=== PATIENT | female | born 1965 | race Two or more races ===

== ENCOUNTER 2016-09-17 16:31 | Inpatient (IN) | payer MEDICAID ==
--- NOTE | 2016-09-17 16:42 | ED Physician Chart ---
Chief Complaint/HPI - Patient Information Date Seen:: 09/17/16 Time Seen:: 16:32 Chief Complaint:: Alcohol intoxication History of Present Illness:: Pt was brought in by ambulance because she was found intoxicated with alcohol in the public. Pt appears to be comfortable without subjective complaint. H & P are limited because pt is intoxicated and is not fully cooperative. Allergies:: NKA Vitals:: see Nurse Note Historian:: Patient, EMS Family MD/PCP:: Unknown LMP:: Postmenopausal Review:: Nurse's Note Reviewed Review of Systems - Review of Systems General/Constitutional: Other (Pt does not cooperate for ROS.) Past Medical History - Past Medical History Past Medical History: Other (alcoholism) Family History: Other (Pt does not cooperate to provide info on FHx.) Social History: Alcohol, Other (Pt does not cooperate to provide info on SHx.) Surgical History: other (Pt does not cooperate to provide info on Surgical Hx.) Psychiatricy History: Bipolar Medication: Reviewed Family Medical History - Family Member Mother History Unknown: Yes Physical Exam - Physical Examination General/Constitutional: Awake, Well-developed, well-nourished, Alert, No distress Other Gen/Cons comments:: Breathes comfortably, speaks clearly, but not cooperative. Head: Atraumatic Eyes: Lids, conjuctiva normal, PERRL, EOMI Skin: Nl inspection, No rash, No skin lesions, No ecchymosis, Well hydrated, No lymphadenopathy ENMT: External ears, nose nl, Nasal exam nl, Oropharynx nl, Tonsils nl Neck: Nontender, Full ROM w/o pain, No JVD, No nuchal rigidity, No mass, No stridor Cardio Vascular: RRR (with VR 96), No murmur, gallop, rubs GI: No tenderness/rebounding/guarding, No organomegaly, No hernia, Normal BS's, Nondistended, No mass/bruits, No McBurney tenderness Other GI comments:: Abdomen is soft. Extremities: No tenderness or effusion, No edema Neuro/Psych: Alert/oriented (knows her name, and that she is in a hospital) Other Neuro/Psych comments:: Spontaneous movements noticed in all 4 extremities. Pt does not cooperate for full neurological exam. Labs/Radiology/EKG Results - Lab Results Results: Laboratory Tests 09/17/16 09/17/16 09/17/16 16:53 16:53 16:53 WBC 5.8 RBC 4.99 Hgb 11.0 L Hct 34.6 L MCV 69.3 L MCH 22.0 L MCHC Differential 31.7 RDW 17.3 Plt Count 249 MPV 6.9 Neutrophils (Manual) 47 Lymphocytes 45 Monocytes 5 Atypical Lymphocytes 3 Hypochromia 1+ Platelet Estimate ADEQUATE Platelet Morphology NORMAL Microcytosis 2+ RBC Morph Micro Appear ABNORMAL PT 11.2 INR 1.08 PTT (Actin FS) 26.6 Sodium Potassium Chloride Carbon Dioxide Anion Gap BUN Creatinine Est GFR ( Amer) Est GFR (Non-Af Amer) BUN/Creatinine Ratio Glucose Calcium Total Bilirubin AST ALT Alkaline Phosphatase Total Protein Albumin Globulin Albumin/Globulin Ratio Ethyl Alcohol 433 H 09/17/16 16:53 WBC RBC Hgb Hct MCV MCH MCHC Differential RDW Plt Count MPV Neutrophils (Manual) Lymphocytes Monocytes Atypical Lymphocytes Hypochromia Platelet Estimate Platelet Morphology Microcytosis RBC Morph Micro Appear PT INR PTT (Actin FS) Sodium 140 Potassium 3.1 L Chloride 102 Carbon Dioxide 23.9 Anion Gap 17.2 H BUN 5 L Creatinine 0.6 Est GFR ( Amer) > 60.0 Est GFR (Non-Af Amer) > 60.0 BUN/Creatinine Ratio 8.3 Glucose 111 H Calcium 8.3 L Total Bilirubin 0.5 AST 52 H ALT 16 Alkaline Phosphatase 86 Total Protein 7.0 Albumin 3.7 Globulin 3.3 Albumin/Globulin Ratio 1.1 Ethyl Alcohol ED Septic Shock - . Is Septic Shock (SBP<90, OR Lactate>4 mmol\L) present?: No Reassessment (Disposition) - Reassessment Reassessment:: 1834 Pt has been repeatedly evaluated. Pt remains stable. No new findings. Remaining lab results just became available. Dr. Rodarte is to be contacted. 1844 Case has been discussed with Dr. Rodarte with pertinent H & P discussed and lab findings reviewed. Pt is to be admitted to [facility] under his care. Reassessment Condition:: Improved - Diagnosis Diagnosis:: Ethanol intoxication Mild hypokalemia - Patient Disposition Admitted to:: Telemetry Admitting Medical Physician:: Ousmane Rodarte Time:: 18:46 Condition at Disposition:: Stable, Improved
[2016-09-17] MEDS ORDERED: Multivitamin Inj 10 ML, Thiamine HCL 100 MG, Magnesium Sulfate 2 GM, Folic Acid 1 MG in... IV ONE (16:44)
[2016-09-17] MEDS ORDERED: Multivitamin Inj 10 mL Vial IV ONE (16:50)
[2016-09-17] MEDS ORDERED: Thiamine 100 mg/mL 2mL Vial ONE (16:51)
[2016-09-17] MEDS ORDERED: Magnesium Sulfate 1 gm/2 mL 2mL Vial IV ONE (16:53)
[2016-09-17 17:04] LABS: HEMATOCRIT 34.6 % (35.0-45.0); MEAN CELL VOLUME 69.3 fl (81-100); MEAN CORPUSCULAR HGB CONC 31.7 pg (28.0-36.0); MEAN PLATELET VOLUME 6.9 fl; PLATELET COUNT 249 Th/cmm (150-400); RED BLOOD COUNT 4.99 Mil/cmm (3.80-5.10); RED CELL DISTRIBUTION WIDTH 17.3 % (11.5-20.0); WHITE BLOOD COUNT 5.8 Th/cmm (4.8-10.8)
[2016-09-17 17:18] LABS: INR 1.08 (0.5-1.4); PROTHROMBIN TIME (TEST) 11.2 SECONDS (9.5-11.5)
[2016-09-17 17:30] LABS: ALB/GLOB RATIO 1.1 (1.0-1.8); ALKALINE PHOSPHATASE 86 U/L (34-104); ANION GAP 17.2 (7.0-16.0); BILIRUBIN,TOTAL 0.5 mg/dL (0.3-1.0); BUN - UREA NITROGEN 5 mg/dL (7-25); BUN/CREATININE RATIO 8.3; CALCIUM SERUM 8.3 mg/dL (8.6-10.3); CARBON DIOXIDE 23.9 mEq/L (21.0-31.0); CHLORIDE 102 mEq/L (98-107); CREATININE - SERUM 0.6 mg/dL (0.6-1.2); GLUCOSE 111 mg/dL (70-105); HYPOCHROMIA 1+; MICROCYTOSIS 2+; NEUTROPHILS 47 % (40-80); PLATELET ESTIMATE ADEQUATE (NORMAL); PLATELET MORPHOLOGY NORMAL (NORMAL); SGOT 52 U/L (13-39); SGPT/ALT 16 U/L (7-52); SODIUM SERUM 140 mEq/L (136-145); TOTAL CELLS COUNTED 100
[2016-09-17 18:10] LABS: POTASSIUM SERUM 3.1 mEq/L (3.5-5.1)
[2016-09-17] MEDS ORDERED: Potassium Chloride 20 mEq ER Tab PO ONE (18:16)
[2016-09-17] MEDS ORDERED: Potassium Chloride Elixir 20 mEq /15 mL UDC ONE (18:19)
[2016-09-17] MEDS ORDERED: Multivitamin Inj 10 ML, Thiamine HCL 100 MG, Magnesium Sulfate 2 GM, Folic Acid 1 MG in... IV SCH (20:49)
[2016-09-17] MEDS ORDERED: Sodium Chloride 0.9% 1,000 ML IV ONE (21:05)
--- NOTE | 2016-09-18 09:19 | General Progress Note ---
Subjective - Review of Systems Service Date: 09/18/16 Subjective: I am shaking Objective - Results Result Diagrams: 09/17/16 16:53 09/17/16 16:53 Recent Labs: Laboratory Last Values WBC 5.8 Th/cmm (4.8-10.8) 09/17/16 16:53 RBC 4.99 Mil/cmm (3.80-5.10) 09/17/16 16:53 Hgb 11.0 gm/dL (11.7-15.5) L 09/17/16 16:53 Hct 34.6 % (35.0-45.0) L 09/17/16 16:53 MCV 69.3 fl (81-100) L 09/17/16 16:53 MCH 22.0 pg (27.0-31.0) L 09/17/16 16:53 MCHC Differential 31.7 pg (28.0-36.0) 09/17/16 16:53 RDW 17.3 % (11.5-20.0) 09/17/16 16:53 Plt Count 249 Th/cmm (150-400) 09/17/16 16:53 MPV 6.9 fl 09/17/16 16:53 Neutrophils (Manual) 47 % (40-80) 09/17/16 16:53 Lymphocytes 45 % (20-50) 09/17/16 16:53 Monocytes 5 % (2-10) 09/17/16 16:53 Atypical Lymphocytes 3 % 09/17/16 16:53 Hypochromia 1+ 09/17/16 16:53 Platelet Estimate ADEQUATE (NORMAL) 09/17/16 16:53 Platelet Morphology NORMAL (NORMAL) 09/17/16 16:53 Microcytosis 2+ 09/17/16 16:53 RBC Morph Micro Appear ABNORMAL (NORMAL) 09/17/16 16:53 PT 11.2 SECONDS (9.5-11.5) 09/17/16 16:53 INR 1.08 (0.5-1.4) 09/17/16 16:53 PTT (Actin FS) 26.6 SECONDS (26.0-38.0) 09/17/16 16:53 Sodium 140 mEq/L (136-145) 09/17/16 16:53 Potassium 3.1 mEq/L (3.5-5.1) L 09/17/16 16:53 Chloride 102 mEq/L (98-107) 09/17/16 16:53 Carbon Dioxide 23.9 mEq/L (21.0-31.0) 09/17/16 16:53 Anion Gap 17.2 (7.0-16.0) H 09/17/16 16:53 BUN 5 mg/dL (7-25) L 09/17/16 16:53 Creatinine 0.6 mg/dL (0.6-1.2) 09/17/16 16:53 Est GFR ( Amer) > 60.0 ml/min (>90) 09/17/16 16:53 Est GFR (Non-Af Amer) > 60.0 ml/min 09/17/16 16:53 BUN/Creatinine Ratio 8.3 09/17/16 16:53 Glucose 111 mg/dL (70-105) H 09/17/16 16:53 Calcium 8.3 mg/dL (8.6-10.3) L 09/17/16 16:53 Total Bilirubin 0.5 mg/dL (0.3-1.0) 09/17/16 16:53 AST 52 U/L (13-39) H 09/17/16 16:53 ALT 16 U/L (7-52) 09/17/16 16:53 Alkaline Phosphatase 86 U/L (34-104) 09/17/16 16:53 Total Protein 7.0 gm/dL (6.0-8.3) 09/17/16 16:53 Albumin 3.7 gm/dL (3.7-5.3) 09/17/16 16:53 Globulin 3.3 gm/dL 09/17/16 16:53 Albumin/Globulin Ratio 1.1 (1.0-1.8) 09/17/16 16:53 Ethyl Alcohol 433 mg/dL (0-10) H 09/17/16 16:53 - Physical Exam Vitals and I&O: Vital Signs Temp 97.4 F 09/18/16 08:00 Pulse 92 09/18/16 08:00 Resp 20 09/18/16 08:00 BP 157/81 09/18/16 08:00 Pulse Ox 98 09/18/16 08:00 Intake & Output 09/17/16 09/18/16 09/18/16 18:59 06:59 18:59 Intake Total 1900 Balance 1900 Intake: Intake, IV Amount 400 Oral 1500 Other: # Voids 3 Active Medications: Current Medications Acetaminophen (Tylenol) 650 mg PO Q6H PRN PRN Reason: Pain or Fever >101 Stop: 11/16/16 20:59 Sodium Chloride (Nacl 0.9%) 1,000 mls @ 75 mls/hr IV .[id number] ONE Stop: 09/18/16 10:24 Last Admin: 09/17/16 22:26 Dose: 75 mls/hr Multivitamins/Minerals 10 ml/Thiamine HCl 100 mg/ Magnesium Sulfate 2 gm/ Folic Acid 1 mg / Sodium Chloride 1,015.2 mls @ 150 mls/hr IV Q24H KENJI Stop: 11/17/16 09:59 Loperamide HCl (Imodium) 4 mg PO X1 ONE Stop: 09/18/16 09:14 Lorazepam (Ativan) 1 mg IVP Q6H PRN; Protocol PRN Reason: anxiety Stop: 11/16/16 20:59 Ondansetron HCl (Zofran) 4 mg IV Q6H PRN PRN Reason: Nausea / Vomiting Stop: 11/16/16 20:48 Last Admin: 09/17/16 22:21 Dose: 4 mg General: Alert, Mild distress HEENT: Atraumatic Neck: Supple Cardiovascular: Regular rate Lungs: Clear to auscultation Abdomen: Bowel sounds Extremities: Other (No edema) Neurological: Other (Unstable gait) Skin: Other (Warm and dry) Psych/Mental Status: Other (Confused) Assessment/Plan - Assessment Assessment: Patient in banana bag, Ativan. Now with diarrhea. Dx: Alcohol intoxication - Plan Plan: Will continue with ativan and banana bag. Imodium is added. Will continue to monitor.
--- NOTE | 2016-09-18 12:00 | History & Physical ---
ADMIT DATE: 09/17/2016 CHIEF COMPLAINT: Alcohol intoxication. HISTORY OF PRESENT ILLNESS: This is the case of a 50-year-old female who was brought by ambulance secondary to she was found intoxicated in public area. On arrival to Emergency, the patient was intoxicated, not fully cooperative, but alcohol level were high, reason why patient was admitted to continue treatment. PAST MEDICAL HISTORY: Not available secondary to the patient's mental condition. ALLERGIES: No known allergies. SOCIAL HISTORY: The patient used alcohol and drugs. REVIEW OF SYSTEMS: Information was not obtained secondary to the patient's mental condition. PHYSICAL EXAMINATION: GENERAL: Does reveal fairly nourished and developed female, awake, drunk, in no acute distress. HEENT: Head is atraumatic, normocephalic. Eyes: Pupils reactive to light. Nose: No evidence of nasal obstruction. Ears: No evidence of any discharge. Mouth: Fairly ____. LUNGS: Bilateral air entry. No wheezing, no crackles. HEART: Regular rhythm. ABDOMEN: Soft, nontender. Bowel sound is present. EXTREMITIES: No edema. NEUROLOGIC: The patient is awake, confused, drunk. Neurological examination not completed secondary to the patient's mental condition. IMPRESSION: Alcohol intoxication. PLAN: 1. The patient will be admitted in the medical surgical floor. 2. Banana bag. 3. Ativan. 4. Regular diet. 5. CBC and CMP and ____ at a.m. JOB# [id number]
[2016-09-18] MEDS: Multivitamin Inj 10 ML, Thiamine HCL 100 MG, Magnesium Sulfate 2 GM, Folic Acid 1 MG in... IV SCH (12:08)
--- NOTE | 2016-09-18 13:49 | Admit Criteria Form ---
Admit Criteria Forms - Admit Criteria Diagnosis: SUBSTANCE ABUSE Clinical Indications for Admission to Inpatient Care (Place 'X' for any and all applicable criteria): Admission is indicated due to ANY ONE of the following(1)(2)(3)(4)(5): [ ]I. Delirium due to alcohol or sedative A withdrawal B ( Also use Delirium Criteria as appropriate)1,6,7 [ ]II. Alcohol or sedative withdrawal with high-risk indicator as manifested by ALL of the following1,3,6,7 [ ]a) Signs of withdrawal as indicated by ANY ONE of the following: [ ]i) Heart rate greater than 100 beats per minute [ ]ii) Nausea or vomiting [ ]iii) Other physical signs of alcohol or sedative withdrawal [ ]iv) Tremor [ ](v) Increased perspiration [ ]b) Elevated risk due to a historical or comorbid factor as indicated by ANY ONE of the following: [ ]i) History of delirium due to alcohol or sedative withdrawal [ ]ii) History of repetitive seizures due to alcohol or sedative withdrawal C [ ]iii) Intrinsic seizure disorder (epilepsy) [ ]iv) [ ]v) Comorbid medical condition that can be dangerously destabilized by alcohol or sedative withdrawal (eg, severe cardiac disease) [ ]III. Severe alcohol or sedative withdrawal that is unmanageable at lower level of care, as manifested by ALL of the following1,3,6,7 [ ]a) Marked signs of withdrawal as indicated by ANY ONE of the following: [ ]i) Heart rate greater than 120 beats per minute [ ]ii) Vomiting [ ]iii) Grossly visible tremor [ ]iv) Profuse perspiration [ ]v) Temperature greater than 38.3 degrees C (101 degrees F) [ ]vi) Other marked physical signs of alcohol or sedative withdrawal [ ]b) Signs of withdrawal which require inpatient treatment as indicated by ANY ONE of the following: [ ]i) Inadequate response to pharmacotherapy in emergency department or other appropriate lower level of care [ ]ii) Lower level of care not feasible or appropriate (eg, unavailable or inappropriate to patient condition or treatment history) [ ]IV. Severely complicated opioid withdrawal that requires [id number] care as manifested by ALL of the following 1,4,7,11 [ ]a) Vomiting or diarrhea due to opioid withdrawal [ ]b) Marked dehydration or electrolyte abnormality that cannot be corrected (to near normal) in an emergency department or other ambulatory setting (eg, serum K<2.5 mEq/L , serum Na <130 mEq/L [X ]V. Acute toxicity or instability from substance use requiring inpatient care (eg, altered mental status, respiratory depression) that has had inadequate response to, or is judged inappropriate for, treatment at lower level of care (eg, emergency department, observation care) [ ]. Other inpatient medical or psychiatric care is needed due to risk or comorbidity as indicated by ALL of the following(18): [ ]a) Treatment is needed because of patient risk due to ANY ONE of the following: [ ]i) Medical condition (eg, severe cardiac disease) that requires 24-hour monitoring and treatment due to danger of destabilization by alcohol or sedative withdrawal is present [ ]ii) Imminent danger to self is present due to ANY ONE of the following(19)(20)(21): [ ]1) Imminent risk for recurrence of Suicide attempt or act of serious Harm to self is present as indicated by ALL of the following: [ ]A. There has been very recent Suicide attempt or deliberate act of serious Harm to self. [ ]B. There has not been Sufficient relief of the factors that precipitated the attempt or act. [ ]2) Current plan for suicide or serious Harm to self is present. [ ]3) Command auditory hallucinations for suicide or serious Harm to self are present. [ ]4) Patient has persistent Thoughts of suicide or serious Harm to self that cannot be adequately monitored at lower level of care due to ANY ONE of the following[E]: [ ]A. Insufficient behavioral care is available to meet patient needs (such as required provider or lower level facility is not available). [ ]B. Patient characteristics such as high impulsivity or unreliability are present. [ ]C. Environment does not support recovery. [ ]D. Ready access to lethal means [ ]iii) Imminent danger to others is present due to ANY ONE of the following(19)(23)(24): [ ]1) Imminent risk for recurrence of attempt to seriously Harm another is present as indicated by ALL of the following: [ ]A. There has been very recent attempt to seriously Harm another. [ ]B. There has not been Sufficient relief of factors that precipitated the attempt or act. [ ]2) Current plan for homicide or serious Harm to another is present. [ ]3) Command auditory hallucinations or paranoid delusions contributing to risk for homicide or serious Harm to another are present. [ ]4) Patient has persistent thoughts of homicide or serious Harm to another that cannot be adequately monitored at lower level of care because of ANY ONE of the following[E]: [ ]A. Insufficient behavioral care is available to meet patient needs (such as required provider or lower level facility is not available). [ ]B. High impulsivity or unreliability is present. [ ]C. Environment does not support recovery. [ ]D. Ready access to lethal means [ ]iv) Severe dysfunction in daily living related to substance use disorder as indicated by ANY ONE of the following(33): [ ]a) Extreme deterioration in social interactions (eg , threatening behaviors with little or no provocation) [ ]b) Complete withdrawal from all social interactions [ ]c) Complete neglect of self-care with associated impairment in physical status [ ]d) Extreme disruption in vegetative function (eg, life-sustaining functions such as eating) [ ]e) Complete inability to maintain any appropriate aspect of personal responsibility in any adult roles (eg, occupational, parental ) [ ]v) Other emotional, behavioral, or cognitive symptoms of sufficient severity to preclude ability to engage in recovery without 24-hour monitoring and treatment are present. [ ]vi) Patient requires monitoring due to substance use in combination with medical, psychiatric, or environmental factors that prevent adequate management at lower level of care as indicated by ALL of the following: [ ]1) Significant substance use effects, medical conditions, or psychiatric comorbidities are present as indicated by ANY ONE of the following [ ]A. Substance toxicity or withdrawal requires medical monitoring. [ ]B. Medical comorbidity requires medical monitoring for destabilization due to alcohol or sedative withdrawal. [ ]C. Emotional, behavioral, or cognitive symptoms of sufficient severity to limit or preclude ability to engage in treatment are present. [ ]2) Conditions, barriers, or environmental factors preventing treatment at lower level of care are present as indicated by ANY ONE of the following: [ ]A. Psychiatric comorbidity or opposition to treatment requires 24-hour setting to ensure adherence with medical treatment or adequate motivating interventions. [ ]B. Severe behavioral problems (eg, escalating relapse behaviors, acute psychiatric or substance use crisis, inability to recognize signs and symptoms of relapse ) require 24-hour setting for relapse prevention.[F] [ ]C. Living environment outside of 24-hour setting prevents recovery (eg, abuse, victimization, patient inability to cope). [ ]b Treatment situation and needs are appropriate for inpatient level ( instead of using lower level of care) as indicated by ANY ONE of the following( 25)(26)(27): [ ]i) Patient is unwilling to participate voluntarily and requires treatment (eg, legal commitment) in involuntary unit.(23) [ ]ii) Voluntary treatment at lower level is not feasible (eg, lower level care unavailable or inappropriate for patient condition). [ ]iii) Physical restraint, seclusion, or other involuntary control is needed (eg, actively violent patient for whom treatment in an involuntary unit is deemed necessary in accord with applicable medical and legal criteria).(23) [ ]iv) [id number] medical or nursing care to address symptoms and initiate interventions is required; specific need is identified. Extended stay beyond goal length of stay may be needed for: [ ]a) Onset of delirium [ ]b) Recurrent seizures [ ]c) Persistent severe alcohol or sedative withdrawal [ ]d) Persistent dangerous behavior The original [facility] content created by [employer] has been revised. The portions of the content which have been revised are identified through the use of italic text or in bold, and [facility] has neither reviewed nor approved the modified material. All other unmodified content is copyright [email or web address]. Please see references footnoted in the original [email or web address] edition 2016 Admit Criteria Met?: Yes
[2016-09-19 07:23] LABS: HEMATOCRIT 35.9 % (35.0-45.0); HEMOGLOBIN 11.4 gm/dL (11.7-15.5); MEAN CELL VOLUME 69.4 fl (81-100); MEAN CORPUSCULAR HEMOGLOBIN 22.1 pg (27.0-31.0); MEAN CORPUSCULAR HGB CONC 31.8 pg (28.0-36.0); RED BLOOD COUNT 5.17 Mil/cmm (3.80-5.10); RED CELL DISTRIBUTION WIDTH 16.9 % (11.5-20.0)
[2016-09-19 07:27] LABS: PLATELET COUNT NOT ABLE TO PERFORM Th/cmm (150-400); WHITE BLOOD COUNT 4.6 Th/cmm (4.8-10.8)
[2016-09-19 07:36] LABS: ALB/GLOB RATIO 1.1 (1.0-1.8); ALKALINE PHOSPHATASE 83 U/L (34-104); ANION GAP 12.3 (7.0-16.0); BILIRUBIN,TOTAL 1.2 mg/dL (0.3-1.0); BUN - UREA NITROGEN 7 mg/dL (7-25); BUN/CREATININE RATIO 11.7; CALCIUM SERUM 9.2 mg/dL (8.6-10.3); CARBON DIOXIDE 29.5 mEq/L (21.0-31.0); CHLORIDE 101 mEq/L (98-107); CREATININE - SERUM 0.6 mg/dL (0.6-1.2); GLUCOSE 146 mg/dL (70-105); POTASSIUM SERUM 3.8 mEq/L (3.5-5.1); SGOT 37 U/L (13-39); SGPT/ALT 13 U/L (7-52); SODIUM SERUM 139 mEq/L (136-145)
[2016-09-19 07:50] LABS: BAND NEUTROPHILE 1 % (0-10); EOSINOPHIL 1 % (0-5); NEUTROPHILS 54 % (40-80); TOTAL CELLS COUNTED 100
[2016-09-19 07:51] LABS: MICROCYTOSIS 3+; PLATELET ESTIMATE ADEQUATE (NORMAL); PLATELET MORPHOLOGY NORMAL (NORMAL)
--- NOTE | 2016-09-19 08:57 | General Progress Note ---
Subjective - Review of Systems Service Date: 09/19/16 Subjective: I fell better Objective - Results Result Diagrams: 09/19/16 06:50 09/19/16 06:50 Recent Labs: Laboratory Last Values WBC 4.6 Th/cmm (4.8-10.8) L D 09/19/16 06:50 RBC 5.17 Mil/cmm (3.80-5.10) H 09/19/16 06:50 Hgb 11.4 gm/dL (11.7-15.5) L 09/19/16 06:50 Hct 35.9 % (35.0-45.0) 09/19/16 06:50 MCV 69.4 fl (81-100) L 09/19/16 06:50 MCH 22.1 pg (27.0-31.0) L 09/19/16 06:50 MCHC Differential 31.8 pg (28.0-36.0) 09/19/16 06:50 RDW 16.9 % (11.5-20.0) 09/19/16 06:50 Plt Count NOT ABLE TO PERFORM Th/cmm (150-400) 09/19/16 06:50 MPV 8.0 fl 09/19/16 06:50 Band Neutrophils % 1 % (0-10) 09/19/16 06:50 Neutrophils (Manual) 54 % (40-80) 09/19/16 06:50 Lymphocytes 37 % (20-50) 09/19/16 06:50 Monocytes 5 % (2-10) 09/19/16 06:50 Eosinophils 1 % (0-5) 09/19/16 06:50 Atypical Lymphocytes 2 % 09/19/16 06:50 Hypochromia 1+ 09/17/16 16:53 Platelet Estimate ADEQUATE (NORMAL) 09/19/16 06:50 Platelet Morphology NORMAL (NORMAL) 09/19/16 06:50 Microcytosis 3+ 09/19/16 06:50 RBC Morph Micro Appear ABNORMAL (NORMAL) 09/19/16 06:50 PT 11.2 SECONDS (9.5-11.5) 09/17/16 16:53 INR 1.08 (0.5-1.4) 09/17/16 16:53 PTT (Actin FS) 26.6 SECONDS (26.0-38.0) 09/17/16 16:53 Sodium 139 mEq/L (136-145) 09/19/16 06:50 Potassium 3.8 mEq/L (3.5-5.1) 09/19/16 06:50 Chloride 101 mEq/L (98-107) 09/19/16 06:50 Carbon Dioxide 29.5 mEq/L (21.0-31.0) 09/19/16 06:50 Anion Gap 12.3 (7.0-16.0) 09/19/16 06:50 BUN 7 mg/dL (7-25) 09/19/16 06:50 Creatinine 0.6 mg/dL (0.6-1.2) 09/19/16 06:50 Est GFR ( Amer) > 60.0 ml/min (>90) 09/19/16 06:50 Est GFR (Non-Af Amer) > 60.0 ml/min 09/19/16 06:50 BUN/Creatinine Ratio 11.7 09/19/16 06:50 Glucose 146 mg/dL (70-105) H 09/19/16 06:50 Calcium 9.2 mg/dL (8.6-10.3) 09/19/16 06:50 Total Bilirubin 1.2 mg/dL (0.3-1.0) H 09/19/16 06:50 AST 37 U/L (13-39) 09/19/16 06:50 ALT 13 U/L (7-52) 09/19/16 06:50 Alkaline Phosphatase 83 U/L (34-104) 09/19/16 06:50 Total Protein 7.0 gm/dL (6.0-8.3) 09/19/16 06:50 Albumin 3.6 gm/dL (3.7-5.3) L 09/19/16 06:50 Globulin 3.4 gm/dL 09/19/16 06:50 Albumin/Globulin Ratio 1.1 (1.0-1.8) 09/19/16 06:50 TSH 1.65 uIU/ml (0.34-5.60) 09/19/16 06:50 Ethyl Alcohol 433 mg/dL (0-10) H 09/17/16 16:53 - Physical Exam Vitals and I&O: Vital Signs Temp 98.6 F 09/19/16 04:00 Pulse 101 09/19/16 04:00 Resp 20 09/19/16 04:00 BP 136/105 09/19/16 04:00 Pulse Ox 98 09/19/16 04:00 Intake & Output 09/18/16 09/19/16 09/19/16 18:59 06:59 18:59 Intake Total 900 1615.2 Balance 900 1615.2 Intake: Intake, IV Amount 1015.2 Multivitamin Inj 10 ml 1015.2 Thiamine HCL 100 mg Magnesium Sulfate 2 gm Folic Acid 1 mg In Sodium Chloride 0.9% 1,000 ml @ 150 mls/hr IV Q24H [facility] Rx#:[id number] Oral 900 600 Other: # Voids 2 3 # Bowel Movements 1 0 Active Medications: Current Medications Acetaminophen (Tylenol) 650 mg PO Q6H PRN PRN Reason: Pain or Fever >101 Stop: 11/16/16 20:59 Multivitamins/Minerals 10 ml/Thiamine HCl 100 mg/ Magnesium Sulfate 2 gm/ Folic Acid 1 mg / Sodium Chloride 1,015.2 mls @ 150 mls/hr IV Q24H [facility] Stop: 11/17/16 09:59 Last Infusion: 09/18/16 20:11 Dose: Infused Lorazepam (Ativan) 1 mg IVP Q6H PRN; Protocol PRN Reason: anxiety Stop: 11/16/16 20:59 Last Admin: 09/18/16 09:16 Dose: 1 mg Ondansetron HCl (Zofran) 4 mg IV Q6H PRN PRN Reason: Nausea / Vomiting Stop: 11/16/16 20:48 Last Admin: 09/17/16 22:21 Dose: 4 mg Pantoprazole Sodium (Protonix) 40 mg IVP DAILY [facility] Stop: 11/18/16 08:59 General: Alert, Cooperative, No acute distress HEENT: Atraumatic Neck: Supple Cardiovascular: Regular rate Lungs: Clear to auscultation Abdomen: Bowel sounds Extremities: Other (No edema) Neurological: Other (Unstable gait) Skin: Other (Warm and dry) Psych/Mental Status: Mental status NL Assessment/Plan - Assessment Assessment: Patient in banana bag, Ativan. felling better. Dx: Alcohol intoxication, alcohol withdrawn - Plan Plan: Will continue with ativan and banana bag. Protonix is added. Will continue to monitor. Nutritional Asmnt/Malnutr-PDOC - Dietary Evaluation Malnutrition Findings (Please click <Entered> for more info): Nutritional Asmnt/Malnutrition Start: 09/18/16 14: 03 Text: Status: Complete Freq: Document 09/18/16 14:03 ANAMARIAJANAE (Rec: 09/18/16 14:13 [email or web address]) Nutritional Asmnt/Malnutrition Patient General Information Nutritional Screening Diagnosis Diagnosis Alcohol intoxication Subjective Information 50 year old female. Visited pt during lunch time. Pt stated good appetite, food is excellent. However, pt was unable to eat breakfast because she has loose wobbling teeth causing difficulty to chew. Pt requested chopped food. Pt reported diarrhea but has improved aftergiven medications. Pt does not know UBW, CBW bedscale 131.2lb. Pt has no other nutritional concerns. Current Diet Order/ Nutrition Support Regular Pertinent Medications Multivitamins, Zofran Pertinent Labs 09/17: glucose 111 Nutritional Hx/Data Height 1.6 m Height (Calculated Centimeters) 160.0 Current Weight (lbs) 59.511 kg Weight (Calculated Kilograms) 59.5 Weight (Calculated Grams) 15235.3 [place] Body Weight 115 Weight Status Approriate GI Symptoms Difficult in: Chewing Food Allergies No Skin Integrity/Comment: Ruperto 20. Skin intact. Estimated Nutritional Goals BEE in Kcals: Using Current wt Calories/Kcals/Kg CBW 59.5kg Kcals Calculated 1488-1785kcal (25-30kcal/kg) Protein: Using Current wt Protein Calculated 60g (1g/kg) Fluid: ml 1488-1785ml (1ml/kcal) Nutritional Problem 1. Problem Problem Difficulty chewing related to Etiology loose wobbling teeth aeb Signs/Symptoms: pt report, pt unable to chew some food items, pt request for chopped food Intervention/Recommendation Comments 1. Recommend [facility] chopped diet . Pt report unable to eat all of breakfast due to loose woobling teeth causing difficulty in chewing. Discussed texture options with pt. Expected Outcomes/Goals Expected Outcomes/Goals 1. PO intake to meet at least 75% of estimated nutritional needs.
[2016-09-19] MEDS: Multivitamin Inj 10 ML, Thiamine HCL 100 MG, Magnesium Sulfate 2 GM, Folic Acid 1 MG in... IV SCH (10:43)
[2016-09-20] MEDS ORDERED: Thiamine 100 mg/mL 2mL Vial IM SCH (09:00)
--- NOTE | 2016-09-21 00:58 | Discharge Summary ---
DATE OF DISCHARGE: 09/19/2016 CHIEF COMPLAINT: Alcohol intoxication. HISTORY OF PRESENT ILLNESS: This is the case of a 50-year-old female who was brought by ambulance to ER secondary to patient was found intoxicated in the streets. When the patient came to Emergency Room, the patient was intoxicated with alcohol with high level of alcohol in blood. For this reason, the patient was admitted for treatment. HOSPITAL COURSE AND TREATMENT: Then, this patient was admitted in the medical surgical floor. She was started on banana bag IV, Ativan IV, regular diet. The following day after admission, the patient was started to have some alcohol withdrawal. The patient received Ativan and improved. In the 2 days of hospitalization, the patient was awake, alert, in no acute distress and she decided to left against medical advice. The patient signed papers and left. IMPRESSION: 1. Alcohol intoxication. 2. Alcohol withdrawal. JOB# [id number]
== END 2016-09-19 15:00 | disposition left against medical advice (07) | DRG 775 ==
LOC: ER 16:31 → TELE 18:45
PROVIDERS: ADMIT General Practice; ATTEND General Practice
DX: F10.129 Alcohol abuse with intoxication, unspecified (principal); G92 Toxic encephalopathy; E87.6 Hypokalemia; Y90.8 Blood alcohol level of 240 mg/100 ml or more
CPT/HCPCS: 36415-UA; 80053-TC; 80320-TC; 84443-TC; 85007-TC; 85027-TC; 85610-TC; C9113; J2060; J2405; J3411; J3475; J7030; X6226; X6598